=== PATIENT | female | born 1965 | race Caucasian/White ===

== ENCOUNTER 2024-03-16 13:48 | Inpatient (IN) | payer OTHER ==
[2024-03-16 15:18] VITALS: BMI 20.5
[2024-03-16] MEDS ORDERED: hydrOXYzine PAMOATE 25 MG CAPSULE (FP) PO PRN (15:56)
[2024-03-16] MEDS ORDERED: IBUPROFEN 400 MG TABLET (FP) PO PRN (15:56)
[2024-03-16] MEDS ORDERED: BENZOCAINE/MENTHOL (CHLORASEPTIC ) LOZENGE MM PRN (15:56)
[2024-03-16] MEDS ORDERED: POLYETHYLENE GLYCOL (HEALTHYLAX) 3350 17 GM PACKET PO PRN (15:56)
[2024-03-16] MEDS ORDERED: BISMUTH SUBSALICYLATE 524 MG/30 ML PO PRN (15:56)
[2024-03-16] MEDS ORDERED: DICYCLOMINE HCL 10 MG CAPSULE PO PRN (15:56)
[2024-03-16] MEDS ORDERED: MAGNESIUM HYDROX 2400MG/30ML ORAL SUSPENSION 30 ML CUP PO PRN (15:56)
[2024-03-16] MEDS ORDERED: NALOXONE HCL 0.4 MG/ML VIAL IM PRN (15:56)
[2024-03-16] MEDS ORDERED: MAG HYDROX/AL HYDROX/SIMETH 30 ML UNIT-DOSE CUP PO PRN (15:56)
[2024-03-16] MEDS ORDERED: BENZONATATE 200 MG CAPSULE PO PRN (15:56)
[2024-03-16] MEDS ORDERED: NALOXONE HCL (KLOXXADO) 8 MG SPRAY NS PRN (15:56)
[2024-03-16] MEDS ORDERED: LOPERAMIDE HCL 2 MG CAPSULE PO PRN (15:56)
[2024-03-16] MEDS ORDERED: ACETAMINOPHEN 325 MG TABLET (FP) PO PRN (15:56)
[2024-03-16] MEDS ORDERED: guaiFENesin 600 MG TABLET.ER (FP) PO PRN (15:56)
[2024-03-16] MEDS ORDERED: ONDANSETRON *ODT* 4 MG TABLET SL PRN (15:56)
[2024-03-16] MEDS: PRENATAL VITAMINS W/ FOLIC ACID TABLET (FP) PO SCH (17:12)
[2024-03-16] MEDS: NICOTINE 14 MG/24 HOURS TOPICAL PATCH TD SCH (17:12)
[2024-03-16] MEDS: IBUPROFEN 600 MG TABLET (FP) PO PRN (22:58)
[2024-03-16] MEDS: MELATONIN 5 MG TABLETS PO SCH (22:58)
[2024-03-16] MEDS: THIAMINE 100 MG TABLET PO SCH (22:58)
[2024-03-16] MEDS: METHOCARBAMOL 500 MG TABLET PO PRN (22:58)
[2024-03-17] MEDS ORDERED: methaDONE HCL 10 MG TABLET PO ONE (09:20)
[2024-03-17 11:27] LABS: POTASSIUM 4.5 mmol/L (3.5-5.1)
[2024-03-17] MEDS: FLU VACCINE (FLULAVAL) PF 60 MCG/0.5 ML SYRINGE 2023-2024 IM ONE (11:32)
[2024-03-17 11:33] LABS: HEMATOCRIT 41.2 % (32.4-45.2); HEMOGLOBIN 13.7 GM/dL (10.7-15.3); MCH 29.6 pg (25.7-33.7); MCHC 33.2 g/dl (32.0-36.0); MEAN CELL VOLUME 89.1 fl (80-96); MEAN PLT VOLUME 8.8 fl (7.5-11.1); PLATELET COUNT 213 10^3/uL (134-434); RBC 4.62 M/mm3 (3.60-5.2); RDW 13.6 % (11.6-15.6); WHITE BLOOD COUNT 5.7 K/mm3 (4.0-10.0)
[2024-03-17 11:36] LABS: ALBUMIN 3.3 g/dl (3.4-5.0); BLOOD UREA NITROGEN 12.9 mg/dL (7-18)
[2024-03-17 11:39] LABS: CREATININE 0.6 mg/dL (0.55-1.3)
[2024-03-17 11:41] LABS: BILIRUBIN,TOTAL 0.4 mg/dL (0.2-1)
[2024-03-17 18:58] LABS: HIV INTERPRETATION NEGATIVE (NEGATIVE)
[2024-03-17] MEDS: MELATONIN 5 MG TABLETS PO SCH (22:45)
[2024-03-18] MEDS ORDERED: methaDONE HCL 10 MG TABLET PO SCH (06:00)
[2024-03-19] MEDS ORDERED: methaDONE HCL 10 MG TABLET PO SCH (06:00)
[2024-03-20] MEDS: methaDONE HCL 40 MG DISPERSABLE TABLET PO SCH (05:57)
[2024-03-20 06:25] VITALS: RESP 16
[2024-03-20 09:10] VITALS: BP 106/85; PULSE 64; TEMP 98
[2024-03-21] MEDS ORDERED: methaDONE HCL 10 MG TABLET PO SCH (06:00)
== END 2024-03-20 11:15 | disposition home or self-care (01) | DRG 773 ==
LOC: YASAS 13:48 → Y3N 15:58 → Y6N 16:31
PROVIDERS: ADMIT Allergy & Immunology; ATTEND Surgery
PROC: HZ2ZZZZ Detoxification Services for Substance Abuse Treatment (ICD-10-PCS; principal; 2024-03-16)
DX: F11.23 Opioid dependence with withdrawal (principal); F14.20 Cocaine dependence, uncomplicated; F17.210 Nicotine dependence, cigarettes, uncomplicated; F41.9 Anxiety disorder, unspecified; F32.A Depression, unspecified; R76.8 Other specified abnormal immunological findings in serum; Z88.0 Allergy status to penicillin
CPT/HCPCS: 36415; 80053; 80305; 80307; 81025; 85027; 86780; 86803; 87389; 87522; 93005; 93010